=== PATIENT | female | born 1960 | race Caucasian/White ===

== ENCOUNTER 2022-01-28 07:23 | Observation (INO) ==
--- NOTE | 2021-12-23 14:54 | PAT Medication Instructions ---
Medication Instructions Date of Service December 23, 2021 Home Medications aspirin 81 mg tablet,delayed release 81 mg PO HS azelastine 0.05 % eye drops 1 drp ophthalmic (eye) BID PRN baclofen 10 mg tablet 10 mg PO BID cholecalciferol (vitamin D3) 125 mcg (5,000 unit) tablet (Vitamin D3) 125 mcg PO HS ezetimibe 10 mg-simvastatin 20 mg tablet 1 tab PO HS folic acid 1 mg tablet 1 mg PO QAM galcanezumab-gnlm 120 mg/mL subcutaneous pen injector (Emgality Pen) 120 mg subcut Q30D hydroxychloroquine 200 mg tablet (Plaquenil) 200 mg PO BID leflunomide 20 mg tablet 20 mg PO QAM lisinopril 10 mg tablet 10 mg PO QAM magnesium 100 mg tablet 100 mg PO HS pantoprazole 40 mg tablet,delayed release (Protonix) 40 mg PO QAM ranolazine 500 mg tablet,extended release,12 hr 500 mg PO BID sertraline 100 mg tablet 100 mg PO QAM terazosin 5 mg capsule 5 mg PO HS thiamine HCl (vitamin B1) 250 mg tablet (Vitamin B-1) 250 mg PO QAM tocilizumab 162 mg/0.9 mL subcutaneous pen injector (Actemra ACTPen) 162 mg subcut Q7D topiramate 50 mg tablet (Topamax) 50 mg PO BID zoledronic acid 5 mg/100 mL in mannitol 5 %-water intravenous piggybck (Reclast) 1 ea IV Q365D zolpidem 6.25 mg tablet,extended release,multiphase 6.25 mg PO HS ASK your prescriber and surgeon galcanezumab-gnlm 120 mg/mL subcutaneous pen injector (Emgality Pen) 120 mg subcut Q30D hydroxychloroquine 200 mg tablet (Plaquenil) 200 mg PO BID leflunomide 20 mg tablet 20 mg PO QAM tocilizumab 162 mg/0.9 mL subcutaneous pen injector (Actemra ACTPen) 162 mg subcut Q7D zoledronic acid 5 mg/100 mL in mannitol 5 %-water intravenous piggybck (Reclast) 1 ea IV Q365D DO NOT take the morning of surgery baclofen 10 mg tablet 10 mg PO BID folic acid 1 mg tablet 1 mg PO QAM lisinopril 10 mg tablet 10 mg PO QAM thiamine HCl (vitamin B1) 250 mg tablet (Vitamin B-1) 250 mg PO QAM Take morning of surgery With a small sip of water, OTHERWISE NOTHING TO EAT OR DRINK AFTER MIDNIGHT: azelastine 0.05 % eye drops 1 drp ophthalmic (eye) BID PRN(if needed) pantoprazole 40 mg tablet,delayed release (Protonix) 40 mg PO QAM sertraline 100 mg tablet 100 mg PO QAM topiramate 50 mg tablet (Topamax) 50 mg PO BID ranolazine 500 mg tablet,extended release,12 hr 500 mg PO BID Take evening before surgery aspirin 81 mg tablet,delayed release 81 mg PO HS (unless surgeon directed otherwise) azelastine 0.05 % eye drops 1 drp ophthalmic (eye) BID PRN(if needed) baclofen 10 mg tablet 10 mg PO BID cholecalciferol (vitamin D3) 125 mcg (5,000 unit) tablet (Vitamin D3) 125 mcg PO HS ezetimibe 10 mg-simvastatin 20 mg tablet 1 tab PO HS magnesium 100 mg tablet 100 mg PO HS zolpidem 6.25 mg tablet,extended release,multiphase 6.25 mg PO HS topiramate 50 mg tablet (Topamax) 50 mg PO BID terazosin 5 mg capsule 5 mg PO HS ranolazine 500 mg tablet,extended release,12 hr 500 mg PO BID Other Notes If you have any questions please call us at [phone] or [phone] or [phone] or [phone]
--- NOTE | 2021-12-29 08:29 | Anesthesiology Consultation ---
Date of Service December 29, 2021 Assessment & Plan (1) Encounter for pre-operative examination: - will request most recent cardio note and any available echo, stress test or cath report. - Outpatient joint pathway: Per surgeon and patient, plan for outpatient joint program. Upon review of chart- patient is NOT an acceptable candidate for Same Day Joint Program from anesthesia perspective as does not have adequate home support at this time. Pt and surgeon's office made aware. Booking sheet to be changed to overnight observation. - difficult IV stick. - COVID screening: Per assessment on 12/29/2021: Travel screen negative, no known COVID-19 positive contacts or current COVID-19 related symptoms in past 2 weeks. Pt vaccinated. Surgeon arranging preop COVID testing, /2021. Awaiting results. Chart Review Chart Review: Pending: Refer to Additional Notes / Consult section and Patient seen in Pre Admission Testing Teaching & Discussion Pre-Anesthesia Teaching/Discussion Notes: Instructed NPO after midnight before surgery, except medications with 15 cc of water. Medication instructions provided according to the PAT guidelines. History Surgery Operation Date: 01/28/22 10:10 Proposed Procedures p OP: Left Total Knee Arthroplasty - Abundio Recinos DO Height/Weight Height: 5 ft 6 in Weight: 78.4 kg Allergies Allergy/AdvReac Type Severity Reaction Status Date / Time cefuroxime [From Ceftin] Allergy vomiting, Verified 12/17/21 11:49 diarrhea levofloxacin [From Levaquin] Allergy vomiting, Verified 12/17/21 11:49 diarrhea Medications Home Medications Medication Instructions Recorded Confirmed Last Taken aspirin 81 mg tablet,delayed 81 mg PO HS 12/17/21 12/17/21 Unknown release azelastine 0.05 % eye drops 1 drp ophthalmic (eye) BID PRN 12/17/21 12/17/21 Unknown allergies baclofen 10 mg tablet 10 mg PO BID 12/17/21 12/17/21 Unknown cholecalciferol (vitamin D3) 125 125 mcg PO HS 12/17/21 12/17/21 Unknown mcg (5,000 unit) tablet (Vitamin D3) ezetimibe 10 mg-simvastatin 20 mg 1 tab PO HS 12/17/21 12/17/21 Unknown tablet folic acid 1 mg tablet 1 mg PO QAM 12/17/21 12/17/21 Unknown galcanezumab-gnlm 120 mg/mL 120 mg subcut Q30D 12/17/21 12/17/21 Unknown subcutaneous pen injector (Emgality Pen) hydroxychloroquine 200 mg tablet 200 mg PO BID 12/17/21 12/17/21 Unknown (Plaquenil) leflunomide 20 mg tablet 20 mg PO QAM 12/17/21 12/17/21 Unknown lisinopril 10 mg tablet 10 mg PO QPM 12/17/21 12/29/21 Unknown magnesium 100 mg tablet 100 mg PO HS 12/17/21 12/17/21 Unknown pantoprazole 40 mg tablet,delayed 40 mg PO QAM 12/17/21 12/17/21 Unknown release (Protonix) ranolazine 500 mg tablet,extended 500 mg PO BID 12/17/21 12/17/21 Unknown release,12 hr sertraline 100 mg tablet 100 mg PO QAM 12/17/21 12/17/21 Unknown terazosin 5 mg capsule 5 mg PO HS 12/17/21 12/17/21 Unknown thiamine HCl (vitamin B1) 250 mg 250 mg PO QPM 12/17/21 12/29/21 Unknown tablet (Vitamin B-1) tocilizumab 162 mg/0.9 mL 162 mg subcut Q7D 12/17/21 12/17/21 Unknown subcutaneous pen injector (Actemra ACTPen) topiramate 50 mg tablet (Topamax) 50 mg PO BID 12/17/21 12/17/21 Unknown zoledronic acid 5 mg/100 mL in 1 ea IV Q365D 12/17/21 12/17/21 Unknown mannitol 5 %-water intravenous piggybck (Reclast) zolpidem 6.25 mg tablet,extended 6.25 mg PO HS 12/17/21 12/17/21 Unknown release,multiphase Tymlos 80 mcg QPM 12/29/21 12/29/21 Unknown gabapentin 300 mg PO BID 12/29/21 12/29/21 Unknown levocetirizine 5 mg PO QPM 12/29/21 12/29/21 Unknown Past Medical History Medical History (Updated 12/29/21 @ 09:12 by Sharon Dewitt PA-C) Degenerative joint disease Difficult intravenous access "last time IV was placed in my neck" History of blood transfusion 20 ys ago with colon resection Hx of chest pain "told I have small arteries leading to my heart" f/u Dr. Bellamy, [facility] Hx of Raynaud's syndrome Hypertension Osteoporosis Rheumatoid arthritis Sleep apnea "my kids said I need tested because I stop breathing in my sleep" Patient denies h/o stroke, seizures, heart attack, heart failure, DM, or blood clots. Exercise / Class Metabolic Activity II 4-5 Yardwork/Stairs/Walk up hill (ambulating with crutches, denies CP or SOB with ambulation prior to needing crutches; feels slight SOB with stairs with crutches and braces) Past Surgical History Surgical History (Updated 12/29/21 @ 09:12 by Sharon Dewitt PA-C) History of arthroscopic procedure on shoulder RCT Lt. shoulder History of colon resection requiring revision during same hospitalization, > 20 yrs ago Hx of anterior cruciate ligament surgery Lt. Hx of arthroscopic knee surgery Lt and Rt. Hx of breast reduction, elective Hx of colonoscopy Hx of total hysterectomy with removal of both tubes and ovaries Past Anesthesia History No Hx of Anesthesia Complications and No Family Hx of Anesthesia Complications History of PONV No Hx of PONV and No Hx of Motion Sickness Social History Smoking Status: Never smoker Do You Dip or Chew Tobacco: No Hx Alcohol Use: Yes Alcohol type: beer and wine alcohol intake frequency: holidays/special occasions only Hx Substance Use: No substance use type: does not use Review of Systems Patient denies chest pain, shortness of breath, dyspnea on exertion, fever, chills, cough, wheezing, or palpitations. Physical Exam Vital Signs Vitals BP 12/87 P 64 TEMP 97.7 SP02 99% on RA RESP 17 Physical Limited cervical extension range of motion without pain TMD 3.5 finger breadths Mallampati Score 3, small oral opening Dentition: intact, left upper side and lower right side caps; denies chipped or loose teeth, implants or bridges Lungs: normal respiratory effort. Clear throughout to auscultation, no adventitious breath sounds Cardiac: regular rate and rhythm, no murmurs noted Carotid arteries: negative bruit bilat Lab Results Anesthesia Preop Results Results Anesthesia Widget: WBC 4.31 K/ul (4.8-10.8) L 12/29/21 Hgb 13.4 g/dl (12.0-16.0) 12/29/21 Hct 41.0 % (34.1-44.9) 12/29/21 Plt 196 K/uL (130-400) 12/29/21 Na 140 mmol/L (136-145) 12/29/21 K 4.4 mmol/L (3.5-5.1) 12/29/21 Cl 110 mmol/L (98-107) H 12/29/21 CO2 24 mmol/L (21-32) 12/29/21 BUN 15 mg/dl (6-23) 12/29/21 Creat 0.76 mg/dl (0.6-1.2) 12/29/21 Glucose Level 92 mg/dl (70-99(Fasting)) 12/29/21 PT 11.4 Seconds (9.0-12.0) 12/29/21 PTT 22.5 Seconds (21.0-31.0) 12/29/21 INR 1.1 (0.9-1.1) 12/29/21 HA1c 5.2 % (4.5-5.6) 12/29/21 Urine Color Yellow 12/29/21 Urine Appearance Clear (Clear) 12/29/21 Urine pH 6.0 (4.5-7.5) 12/29/21 Urine Specific Burton 1.008 (1.000-1.030) 12/29/21 Urine Protein Negative (Negative) 12/29/21 Urine Glucose (UA) Negative (Negative) 12/29/21 Urine Ketones Negative (Negative) 12/29/21 Urine Blood Negative (Negative) 12/29/21 Urine Nitrite Negative (Negative) 12/29/21 Urine Bilirubin Negative (Negative) 12/29/21 Urine Urobilinogen Negative (Negative) 12/29/21 Urine Leukocyte Esterase Trace (Negative) H 12/29/21 Urine WBC (Auto) 1-5 /hpf (0-5) 12/29/21 Urine RBC (Auto) 0-4 /hpf (0-4) 12/29/21 Urine Hyaline Casts (Auto) 1-5 /lpf (0-5) 12/29/21 Urine Epithelial Cells (Auto) 10-20 /lpf (0-5) H 12/29/21 Urine Bacteria (Auto) Negative (Negative) 12/29/21 Blood Type A Positive 12/29/21 Antibody Screen NEGATIVE 12/29/21 Testing Electrocardiogram Date: 12/29/21 NSR, rate 64 bpm Chest X-Ray Date: 12/29/21 1. No acute process within the chest. 2. Minimal anterior wedging at T3. This is technically age indeterminate but likely represents a chronic compression deformity. Cervical Spine Date: 12/29/21 1. No evidence for cervical spine instability during flexion or extension. 2. Severe multilevel facet arthrosis.
--- NOTE | 2021-12-30 07:43 | History & Physical Report ---
Date of Service December 30, 2021 date of surgery: 01/28/22 Procedure: Left Total Knee Arthroplasty Surgeon: Abundio Recinos Assessment & Plan (1) Arthritis of knee, left: Plan: Patient presents for preop evaluation prior to left total knee replacement. She has failed conservative measures including cortisone injection, viscosupplementation. We will plan on discharge home with home health physical therapy, overnight stay. Her mother will come check on her after discharge. We will plan on in-home physical therapy, aspirin 81 mg twice a day for DVT prophylaxis. We will submit to insurance for authorization for Iovera injection prior to her surgery, if there is approval proceed with Iovera on 01/15. will need medical clearance from Dr Blood The risks and benefits have been discussed including, but not limited to, risk of infection, nerve injury, stiffness, loss of motion, failure to improve, etc. Reasonable outcomes and options of treatment were discussed. An explanation of appropriate alternatives to the procedure that may be advantageous were disc ussed and their risks and benefits, as well as the risks and benefits of not proceeding with treatment. I offered to answer any additional inquiries concerning the treatment involved. All the patient's questions were answered. The patient is agreeable, understanding of the treatment plan and alternatives, and wishes to proceed with the treatment plan. History of Present Illness Chief Complaint: left knee pain Primary Care Provider: NO PCP Francheska is a pleasant 61-year-old female who presents for preop evaluation prior to left total knee replacement. Francheska has been having pain in this knee for many years now which is gradually worsened. Her most recent MRI shows grade 3 and 4 changes tricompartmentally as well as moderate joint effusion and stress reaction of her medial tibial plateau. She has tried previous cortisone injections as well as viscosupplementation, she had knee arthroscopy performed as well without any relief. At this point time she has failed conservative measures and after discussing further care would like to proceed with a left total knee replacement Allergies Allergy/AdvReac Type Severity Reaction Status Date / Time cefuroxime [From Ceftin] Allergy vomiting, Verified 12/17/21 11:49 diarrhea levofloxacin [From Levaquin] Allergy vomiting, Verified 12/17/21 11:49 diarrhea Home Medications Medication Instructions Recorded Confirmed Type aspirin 81 mg tablet,delayed 81 mg PO HS 12/17/21 12/17/21 History release azelastine 0.05 % eye drops 1 drp ophthalmic (eye) BID PRN 12/17/21 12/17/21 History allergies baclofen 10 mg tablet 10 mg PO BID 12/17/21 12/17/21 History cholecalciferol (vitamin D3) 125 125 mcg PO HS 12/17/21 12/17/21 History mcg (5,000 unit) tablet (Vitamin D3) ezetimibe 10 mg-simvastatin 20 mg 1 tab PO HS 12/17/21 12/17/21 History tablet folic acid 1 mg tablet 1 mg PO QAM 12/17/21 12/17/21 History galcanezumab-gnlm 120 mg/mL 120 mg subcut Q30D 12/17/21 12/17/21 History subcutaneous pen injector (Emgality Pen) hydroxychloroquine 200 mg tablet 200 mg PO BID 12/17/21 12/17/21 History (Plaquenil) leflunomide 20 mg tablet 20 mg PO QAM 12/17/21 12/17/21 History lisinopril 10 mg tablet 10 mg PO QPM 12/17/21 12/29/21 History magnesium 100 mg tablet 100 mg PO HS 12/17/21 12/17/21 History pantoprazole 40 mg tablet,delayed 40 mg PO QAM 12/17/21 12/17/21 History release (Protonix) ranolazine 500 mg tablet,extended 500 mg PO BID 12/17/21 12/17/21 History release,12 hr sertraline 100 mg tablet 100 mg PO QAM 12/17/21 12/17/21 History terazosin 5 mg capsule 5 mg PO HS 12/17/21 12/17/21 History thiamine HCl (vitamin B1) 250 mg 250 mg PO QPM 12/17/21 12/29/21 History tablet (Vitamin B-1) tocilizumab 162 mg/0.9 mL 162 mg subcut Q7D 12/17/21 12/17/21 History subcutaneous pen injector (Actemra ACTPen) topiramate 50 mg tablet (Topamax) 50 mg PO BID 12/17/21 12/17/21 History zoledronic acid 5 mg/100 mL in 1 ea IV Q365D 12/17/21 12/17/21 History mannitol 5 %-water intravenous piggybck (Reclast) zolpidem 6.25 mg tablet,extended 6.25 mg PO HS 12/17/21 12/17/21 History release,multiphase Tymlos 80 mcg QPM 12/29/21 12/29/21 History gabapentin 300 mg PO BID 12/29/21 12/29/21 History levocetirizine 5 mg PO QPM 12/29/21 12/29/21 History Past Med/Surg History Medical History Degenerative joint disease Difficult intravenous access "last time IV was placed in my neck" History of blood transfusion 20 ys ago with colon resection Hx of chest pain "told I have small arteries leading to my heart" f/u Dr. Bellamy, [facility] Hx of Raynaud's syndrome Hypertension Osteoporosis Rheumatoid arthritis Sleep apnea "my kids said I need tested because I stop breathing in my sleep" Surgical History History of arthroscopic procedure on shoulder RCT Lt. shoulder History of colon resection requiring revision during same hospitalization, > 20 yrs ago Hx of anterior cruciate ligament surgery Lt. Hx of arthroscopic knee surgery Lt and Rt. Hx of breast reduction, elective Hx of colonoscopy Hx of total hysterectomy with removal of both tubes and ovaries Social History Smoking Status: Never smoker Second Hand Exposure: Yes ("as a child"); Hx Alcohol Use: Yes Alcohol type: beer and wine Hx Substance Use: No Preferred Language: Bur[place]ian Communication Ability: Effective Special Education Superintendent Required: No Beliefs That Will Affect Care: None Current Living Situation: Spouse Feels Safe at Home: Yes Assistive Devices: Glasses Review of Systems Review of Systems: All systems reviewed & are unremarkable except as noted in HPI & below Constitutional: no fever, no chills and no sweats Respiratory: no cough and no dyspnea Cardiovascular: no chest pain, no dyspnea and no orthopnea Gastrointestinal: no abdominal pain, no nausea and no vomiting Musculoskeletal: as per Subjective / HPI Physical Exam Physical Exam: HT: 5ft 6in WT: 78.4kg Constitutional: WD/WN, vitals as above no acute distress Respiratory: normal respiratory effort, lungs clear to auscultation no respiratory distress, no labored breathing and does not use accessory muscles Cardiovascular: RRR, no murmur, no edema Gastrointestinal (Abdomen): normal bowel sounds, soft, nontender, no hepatosplenomegaly Musculoskeletal: Knee: + knee abnormal to inspection (LEFT KNEE), + effusion (+1 effusion), + surgical incision (well healed portals), + limited ROM of knee (ROM 0/3/110), + knee ROM with crepitation, + joint line tenderness (medial joint line) and + José Miguel's sign positive; no deformity, no skin erythema, no ecchymosis, no valgus laxity, no varus laxity, anterior drawer test negative, Asher's sign negative and pivot shift test negative Results & Data Results & Data ([facility]) Diagnostic Findings Prior x-rays and MRI reviewed, show grade 3 and grade 4 changes tricompartmentally, status post ACL reconstruction, moderate joint effusion. No acute bony pathology
[~2022-01-28 07:23] MED LIST: ACETAMINOPHEN 500 MG TAB PO SCH; BUPIVACAINE 0.5 % 5 MG/1 ML PF 10ML VIAL ONE; CeleBREX 200 MG CAP PO SCH; FAMOTIDINE 20 MG TAB PO SCH; GABAPENTIN 600 MG DOSE PO SCH; LR 500ML BOLUS, THEN 15ML/HR IV SCH; METOCLOPRAMIDE HCL 10 MG TABLET PO SCH; ROPIVACAINE 0.5% 5 MG/ML 30 ML VIAL ONE; ROPIVACAINE 0.5% HCL/PF 150 MG, BUPIVACAINE 0.75% MPF 20 ML, EPINEPHrine 30MG/30ML (OR ... INSTIL SCH; TRANEXAMIC ACID 1,000 MG **IV Intra-op IV SCH; TRANEXAMIC ACID 1,000 MG **IV Pre-op IV SCH; VANCOMYCIN HCL 1,250 MG in SODIUM CHLORIDE 0.9% 250 ML IV SCH; dexAMETHasone 4 MG TAB PO SCH
--- NOTE | 2022-01-28 08:31 | History & Physical Bridge Note ---
Date of Service January 28, 2022 History & Physical Bridge Note I have examined the patient, reviewed the History & Physical and in the interval since the performance of the History & Physical I have noted the following changes of clinical significance: no changes noted
[2022-01-28] MEDS ORDERED: MIDAZOLAM HCL 1 MG/ML 2ML VIAL ONE (09:12)
[2022-01-28] MEDS ORDERED: fentaNYL citrate 100 MCG/2 ML VIAL ONE (09:12)
[2022-01-28] MEDS ORDERED: LIDOCAINE 2% 2 ML VIAL/AMP(20MG/ML) INFIL ONE (09:12)
[2022-01-28] MEDS ORDERED: PROPOFOL IV EMULSION 10 MG/ML 20 ML VIAL IV ONE (09:12)
[2022-01-28] MEDS ORDERED: fentaNYL citrate 100 MCG/2 ML VIAL IV PRN (09:37)
[2022-01-28] MEDS ORDERED: ePHEDrine sulfate 50 MG/ML AMP IV PRN (09:37)
[2022-01-28] MEDS ORDERED: ATROPINE SULFATE 0.1 MG/ML 10ML SYR IV PRN (09:37)
[2022-01-28] MEDS ORDERED: ONDANSETRON INJ 2 MG/ML 2 ML VIAL IV PRN ×2 (09:37→13:36)
[2022-01-28] MEDS ORDERED: ORTHO JOINT ANESTHETIC ONE (10:18)
[2022-01-28] MEDS ORDERED: KETAMINE 50 MG/5 ML SYRINGE ONE (11:05)
--- NOTE | 2022-01-28 11:58 | Operative Report ---
Post Operative Report Pre & Post Diagnosis Operation Date: 01/28/22 10:00 Pre-Op Diagnosis: Left knee osteoarthritis Post-Op Diagnosis: Left knee osteoarthritis I identified the patient and participated in the time-out.: Yes Procedure Operation Date: 01/28/22 10:00 Actual Procedures p Left Total Knee Arthroplasty, Cemented(Left) utilizing Burton & NephParchment journey 2 patient matched total knee arthroplasty size femur 4 tibia to polyeleven patella 29 mayra- Abundio Recinos DO Surgeon Abundio Recinos DO Crime Lab Analyst Aydin PATEL Estimated Blood Loss 5 Findings Consistent with Post-Op Diagnosis Patient presents with severe end-stage tricompartmental DJD previously had a previous ACL tear reconstruction with marginal osteophyte subchondral cystic changes eburnated [id number] moderate to large effusion Specimens Bone and cartilage Drains Medium bore Hemovac Anesthesia Type MAC Spinal Regional Complications none Disposition Accompanied Patient To Recovery: No Disposition: Recovery Room Indications Patient presents severe end-stage DJD having failed all attempts at conservative management clinic physical therapy anti-inflammatories relative rest activity modification corticosteroid injections the above intraoperative findings were noted Description of Procedure After proper prepping and draping of the left lower extremity anterior midline incision was made over the region of the extensor extensor mechanism after meticulous hemostasis was obtained and maintained in subcutaneous tissues a medial parapatellar incision was made The patella was subluxed lateralward the medial lateral gutter were cleaned from any hypertrophic synovitis and scar tiss ue of the distal femoral block was placed and the distal femoral osteotomy cut was made subsequently the chamfers anterior and posterior osteotomy cuts were made utilizing the 4-in-1 block the tibia was subsequently subluxed anteriorward medial and ateral meniscal remnants were excised in their entirety remnants of the anterior and posterior cruciate ligaments were excised in their entirety excellent exposure of the proximal tibia was obtained the tibial osteotomy guide was placed on the proximal tibial osteotomy cut was made once again the knee was irrigated with copious amounts of sterile saline solution the patella was subsequently everted lateralward thickened scar tissue around the patella was removed the patella was subsequently cut utilizing a freehand technique and was drilled prepared for final preparation and placement of patella socially flexion-extension gaps were checked and the equal and symmetric trials were placed to the appropriate femoral and tibial trials with poly-spacer being placed for equal flexion and extension gaps and full range of motion including extension to 0 and flexion to 140 the trial components after having been taken to recovery range of motion was subsequently removed meticulous hemostasis was obtained and maintained subsequently a knee block injection of joint cocktail including ropivacaine 0.5% 150 mg. Bupivacaine 0.5% epinephrine 1-200,030 mL's toradol 30 mg dexamethasone 4 mg ketamine 10 mg clonidine 100 micrograms normal saline solution 30 mg was infiltrated into the soft tissues of the posterior knee medial lateral gutters and periosteal synovium special attention was paid to protect neurovascular structures at all times subsequently trial components having been removed the knee was irrigated with sterile saline solution. d ebris was removed the proximal tibia was subsequently prepared and was made ready for the placement of the tibial component tibial component was also cemented and tamped into position the femoral component was subsequently placed and cemented in the position the patellar component was subsequently cemented in position because hemostasis once again obtained and maintained wound having been thoroughly irrigated with debridement and debridement lavage was performed as well as a medial parapatellar incision closed with #1 Vicryl in interrupted fashion subcutaneous was closed with #2 Vicryl skin was closed with skin clips. PA-C was necessary for prepping and drapping as well as wound closure of deep fascia Sub cutaneous tissue and skin and was necessary for the case. A sterile compressive dressing was placed patient was taken to recovery in stable condition of report dictated by Jorje I attest to the content of the Intraoperative Record and any orders documented therein. Any exceptions are noted below.Due to the complex nature of the procedure, the entire surgery was performed with the operational assistance of Aydin PATEL. The front desk assistant, under direct supervision, was involved in the actual performance of all aspects of the surgical procedure including hemostasis, tissue retraction and incision, instrument management, patient positioning, and wound closure. I attest to the content of the Intraoperative Record and any orders documented therein. Any exceptions are noted below.
[2022-01-28] MEDS ORDERED: ONDANSETRON INJ 2 MG/ML 2 ML VIAL ONE (12:04)
--- NOTE | 2022-01-28 13:15 | Anesthesiology Progress Note ---
Date of Service January 28, 2022 Anesthesia Post Procedure Vital Signs Vital Signs: Temp Pulse Pulse Resp BP BP Pulse Ox 01/28/22 13:10 74 18 132/82 94 01/28/22 13:00 67 20 120/67 96 01/28/22 12:50 73 16 127/66 96 01/28/22 12:40 36.4 C L 83 22 123/66 95 01/28/22 08:20 36.6 C 66 20 124/66 97 O2 Del Method O2 Flow Rate 01/28/22 13:10 Room Air 01/28/22 13:00 Oxymask 6 01/28/22 12:50 Oxymask 6 01/28/22 12:40 Oxymask 6 01/28/22 08:20 Room Air Pain Intensity Left Leg: Pain Intensity: 8 Transfer of Care Handoff Completed per policy Notes Mental Status: alert / awake / arousable Patient Amnestic to Procedure: Yes Nausea / Vomiting: adequately controlled Pain: adequately controlled Airway Patency, RR, SpO2: stable & adequate BP & HR: stable & adequate Hydration State: stable & adequate Neuraxial Anesthesia: was administered and sensory block is resolving Anesthetic Complications: no major complications apparent and Pt Satisfied with anesthetic care
--- NOTE | 2022-01-28 13:21 | XRay Report ---
LEFT KNEE 2 VIEWS History: Left total knee arthroplasty. Degenerative arthritis. Postop. FINDINGS: The patient is status post a left total knee arthroplasty. The hardware is intact. No fract ure or dislocation. Surgical drains are in place. IMPRESSION: Left total knee arthroplasty. No evidence for hardware complication. ACT 112: Negative or not required by law. Electronically signed by: Michael Gauthier M.D. 01/28/2022 1:20 PM
[2022-01-28] MEDS ORDERED: MAGNESIUM HYDROXIDE SUSP 30 ML UDC PO PRN (13:36)
[2022-01-28] MEDS ORDERED: NALOXONE HCL 0.4 MG/1 ML VIAL/CARP IV PRN (13:36)
[2022-01-28] MEDS ORDERED: bisacodyL 10 MG SUPP PR PRN (13:36)
[2022-01-28] MEDS ORDERED: ZOLEDRONIC ACID 5 MG/100 ML VIAL IV SCH (13:36)
[2022-01-28] MEDS: SODIUM CHLORIDE 0.9% 1000ML 1,000 ML IV SCH ×2 (14:54→23:49)
[2022-01-28] MEDS: ACETAMINOPHEN 500 MG TAB PO SCH ×2 (15:46→22:14)
[2022-01-28] MEDS: KETOROLAC TROMETHAMINE 15 MG/ML VIAL IV SCH ×2 (15:48→22:14)
--- NOTE | 2022-01-28 16:01 | Hospitalist Consultation ---
Date of Consultation January 28, 2022 Assessment & Plan (1) Hypertension: Francheska is a 61-year-old female with a past medical history of asthma, iatrogenic pneumothorax, anxiety, hypertension, GERD, allergies, and rheumatoid arthritis who presented for scheduled left total knee. We are consulted for postoperative medication management History of knee pain, s/p left total knee arthroplasty Stable blood pressure and heart rate postoperatively, O2 sat normal on room air Doing well on postop evaluation, neurovascularly intact DVT prophylaxis per primary team. Patient was initially recommended for aspirin twice daily, per her PCP due to her GERD issues would consider Lovenox as an alternative. May increase Protonix to twice daily. Adequate pain control at time of bedside assessment CBC/BMP daily Chronic migraine Continue Emgality Rheumatoid arthritis Prior to admission is on hydroxychloroquine/leflunomide/tocilizumab Above meds were held 1 week in advance of surgery, and have been recommended by her manager category to be held until wound is healed. She will continue outpatient follow-up for these. Continue to hold at this time Avoid glucocorticoids postoperatively Continue DMARDs Osteoporosis -Continue home tymlos, patient has brought her own med Depression/anxiety Continue sertraline Microvascular angina, Continue Ranexa 500 mg p.o. twice daily Statin as noted Continue aspirin daily Follows with [facility], no acute decompensation. Continue outpatient follow-up TTE 2020 with normal wall motion and EF 60%. Cardiac catheterization 08/2019; diagnosed with microvascular angina and no stents placed Continue lipid agents Insomnia Continue home Ambien 6.25 mg CR as needed Hypertension Well-controlled on lisinopril 10 mg daily. May resume tomorrow if creatinine remains stable Hyperlipidemia Continue as ezetimbresimvastatin 10/20 mg daily GERD Continue Protonix, increase to twice daily while on increased DVT prophylaxis then decrease and taper as able given history of osteoporosis (2) Hx of chest pain: (3) Osteoporosis: (4) Rheumatoid arthritis: (5) Sleep apnea: (6) Migraine: History of Present Illness Attending Physician: Abundio Recinos, DO History of Present Illness Francheska is a 61-year-old female with a past medical history of asthma, iatrogenic pneumothorax, anxiety, hypertension, GERD, allergies no We are consulted for postoperative medication management Pt reports a hx of RA well controlled on DMARDS. Held 1 week in advance of surgery. Per preop should be held until wound healed. Does have a chronic history of GERD requiring ongoing PPI therapy. She has been switched to Protonix daily for this as an outpatient. No active bleeding. No syncope/presyncope/lightheadedness/dizziness. She has a history of chronic microvascular cardiac disease with chronic angina worsened with activity, this is doing well with Ranexa and does come up when she does vigorous activity or carries laundry up the stairs but she has had a cardiac cath and does not have any large vessel disease amenable to intervention. She is not having any chest pain currently, and has had no increased chest pain or shortness of breath recently. Denies fever, chills, sweats, lightheadedness, dizziness. Does take time [place] for osteoporosis, has her own meds with her. No nausea/vomiting/dizziness postop. No palpitations. CBC in the morning, preop hemoglobin 13.4. No preop electrolyte derangements, creatinine 0.76. Repeat in morning. COVID-negative. Preop EKG NSR, QTC 449 Medical History: Reviewed Medications: Reviewed Surgical History: Reviewed Allergies: Reviewed Social History: Reviewed Code Status: Full code Allergies Allergy/AdvReac Type Severity Reaction Status Date / Time cefuroxime [From Ceftin] Allergy Intermediate vomiting, Verified 01/28/22 07:56 diarrhea levofloxacin [From Levaquin] Allergy Intermediate vomiting, Verified 01/28/22 07:56 diarrhea Home Medications Medication Instructions Recorded Confirmed Type aspirin 81 mg tablet,delayed 81 mg PO HS 12/17/21 01/28/22 History release azelastine 0.05 % eye drops 1 drp ophthalmic (eye) BID PRN 12/17/21 01/28/22 History allergies baclofen 10 mg tablet 10 mg PO BID 12/17/21 01/28/22 History cholecalciferol (vitamin D3) 125 125 mcg PO HS 12/17/21 01/28/22 History mcg (5,000 unit) tablet (Vitamin D3) ezetimibe 10 mg-simvastatin 20 mg 1 tab PO HS 12/17/21 01/28/22 History tablet (Vytorin) folic acid 1 mg tablet 1 mg PO QAM 12/17/21 01/28/22 History galcanezumab-gnlm 120 mg/mL 120 mg subcut Q30D 12/17/21 01/28/22 History subcutaneous pen injector (Emgality Pen) hydroxychloroquine 200 mg tablet 200 mg PO BID 12/17/21 01/28/22 History (Plaquenil) leflunomide 20 mg tablet (Arava) 20 mg PO QAM 12/17/21 01/28/22 History lisinopril 10 mg tablet (Zestril) 10 mg PO QPM 12/17/21 01/28/22 History pantoprazole 40 mg tablet,delayed 40 mg PO QAM 12/17/21 01/28/22 History release (Protonix) ranolazine 500 mg tablet,extended 500 mg PO BID 12/17/21 01/28/22 History release,12 hr (Ranexa) sertraline 100 mg tablet 100 mg PO QAM 12/17/21 01/28/22 History terazosin 5 mg capsule 5 mg PO HS 12/17/21 01/28/22 History thiamine HCl (vitamin B1) 250 mg 250 mg PO QPM 12/17/21 01/28/22 History tablet (Vitamin B-1) tocilizumab 162 mg/0.9 mL 162 mg subcut Q7D 12/17/21 01/28/22 History subcutaneous pen injector (Actemra ACTPen) topiramate 50 mg tablet (Topamax) 50 mg PO BID 12/17/21 01/28/22 History zoledronic acid 5 mg/100 mL in 1 ea IV Q365D 12/17/21 01/28/22 History mannitol 5 %-water intravenous piggybck (Reclast) zolpidem 6.25 mg tablet,extended 6.25 mg PO HS 12/17/21 01/28/22 History release,multiphase (Ambien CR) Tymlos 80 mcg SC QPM 12/29/21 01/28/22 History gabapentin 300 mg PO BID 12/29/21 01/28/22 History levocetirizine 5 mg PO QPM 12/29/21 01/28/22 History acetaminophen 500 mg tablet 1,000 mg PO Q8 14 days #84 tabs 01/28/22 Rx (Tylenol Extra Strength) aspirin 81 mg tablet,delayed 81 mg PO BID 30 days #60 tabs 01/28/22 Rx release polyethylene glycol 3350 17 gram 17 g PO DAILY PRN constipation #5 01/28/22 Rx oral powder packet (Miralax) ea Patient History Medical History (Updated 01/28/22 @ 16:41 by Franck Schultz MD) Degenerative joint disease Difficult intravenous access "last time IV was placed in my neck" History of blood transfusion 20 ys ago with colon resection Hx of chest pain "told I have small arteries leading to my heart" f/u Dr. Bellamy, [facility] Hx of Raynaud's syndrome Hypertension Osteoporosis Rheumatoid arthritis Sleep apnea "my kids said I need tested because I stop breathing in my sleep" Surgical History History of arthroscopic procedure on shoulder RCT Lt. shoulder History of colon resection requiring revision during same hospitalization, > 20 yrs ago Hx of anterior cruciate ligament surgery Lt. Hx of arthroscopic knee surgery Lt and Rt. Hx of breast reduction, elective Hx of colonoscopy Hx of total hysterectomy with removal of both tubes and ovaries Social History Smoking Status: Never smoker Second Hand Exposure: Yes ("as a child"); Do You Dip or Chew Tobacco: No; Tobacco Cessation Education Requested by Patient: No Hx Alcohol Use: Yes Alcohol type: beer and wine Hx Substance Use: No Preferred Language: Vietnamese Communication Ability: Effective [employer] Required: No Beliefs That Will Affect Care: None Current Living Situation: Spouse Other Information That Helps Us Care for You: No Feels Safe at Home: Yes Safety Concerns: Feels Safe At This Time Assistive Devices: Glasses Review of Systems Review of Systems: All systems reviewed & are unremarkable except as noted in Subjective Physical Exam Physical Exam: General: A&Ox3. NAD. Cooperative. HEENT: Atraumatic, normocephalic. Vision/hearing grossly intact Pulm: CTAB A&P. -wheezes, -rales, -rhonchi. Symmetrical chest rise. No increase in work of breathing. No respiratory distress. Cardiac: RRR, -mrg. Radial pulses intact and symmetrical. Abdominal: Nontender, nondistended, soft. BS present. Extremities: Left lower extremity with postop knee dressing and ice pack intact, sensation of soft touch in toes bilaterally, able to wiggle toes bilaterally. Cap refill in hallux intact bilaterally Results & Data Results & Data ([facility]) Vital Signs (Past 12 Hours) Vital Signs Temp Pulse Pulse Resp BP BP Pulse Ox 01/28/22 14:44 36.7 C 67 18 128/66 96 01/28/22 14:03 36.4 C L 68 18 138/82 94 01/28/22 13:34 36.6 C 64 18 124/75 92 01/28/22 13:20 36.4 C L 64 18 136/74 94 01/28/22 13:10 74 18 132/82 94 01/28/22 13:00 67 20 120/67 96 01/28/22 12:50 73 16 127/66 96 01/28/22 12:40 36.4 C L 83 22 123/66 95 01/28/22 08:20 36.6 C 66 20 124/66 97 O2 Del Method O2 Flow Rate 01/28/22 14:44 Room Air 01/28/22 14:03 Room Air 01/28/22 13:34 Room Air 01/28/22 13:20 Room Air 01/28/22 13:10 Room Air 01/28/22 13:00 Oxymask 6 01/28/22 12:50 Oxymask 6 01/28/22 12:40 Oxymask 6 01/28/22 08:20 Room Air PG Care Time/CCT Total # of Minutes Spent Total Time Spent with Patient: Total time spent is greater than 50% in coordination of care (as documented) at patient's floor/unit and/or counseling patient: Coding Level of Care Code 70392 Inpt Consult Level 4 Diagnoses Hypertension I10 Hx of chest pain Z87.898 Osteoporosis M81.0 Rheumatoid arthritis M06.9 Sleep apnea G47.30 Migraine G43.909
[2022-01-28] MEDS: CLINDAMYCIN 600 MG in DEXTROSE 5% 50 ML IV SCH (18:07)
[2022-01-28] MEDS: TOPIRAMATE 50 MG TAB PO SCH (20:05)
[2022-01-28] MEDS: THIAMINE HCL 100 MG TAB PO SCH (20:06)
[2022-01-28] MEDS: RANOLAZINE 500 MG ER TAB PO SCH (20:07)
[2022-01-28] MEDS: SENNA 8.6 MG TAB PO SCH (20:07)
[2022-01-28] MEDS: lisinopril 10 MG TAB PO SCH (20:08)
[2022-01-28] MEDS: PANTOprazole 40 MG TAB PO SCH (20:09)
[2022-01-28] MEDS: EZETIMIBE/SIMVASTATIN 10/20 TAB PO SCH (20:11)
[2022-01-28] MEDS: CHOLECALCIFEROL 5,000 UNITS 125 MCG TAB PO SCH (20:12)
[2022-01-28] MEDS: DOCUSATE SODIUM 100 MG CAP PO SCH (20:12)
[2022-01-28] MEDS: BACLOFEN 10 MG TAB PO SCH (20:21)
[2022-01-28] MEDS: TERAZOSIN HCL 5 MG CAP PO SCH (20:21)
[2022-01-28] MEDS: ZOLPIDEM TARTRATE 5 MG TAB PO SCH (20:21)
[2022-01-28] MEDS ORDERED: NON-FORMULARY MEDICATION (Levocetirizine 5 MG) PO SCH (21:00)
[2022-01-28] MEDS ORDERED: ASPIRIN 81 MG ECTAB PO SCH (21:00)
[2022-01-28] MEDS ORDERED: GABAPENTIN 300 MG CAP PO SCH (21:00)
[2022-01-29] MEDS: CLINDAMYCIN 600 MG in DEXTROSE 5% 50 ML IV SCH (02:23)
[2022-01-29] MEDS: KETOROLAC TROMETHAMINE 15 MG/ML VIAL IV SCH ×2 (05:03→10:18)
[2022-01-29] MEDS: ACETAMINOPHEN 500 MG TAB PO SCH ×4 (06:18→21:02)
[2022-01-29 07:54] LABS: Hematocrit (blood only) 32.1 % (34.1-44.9); Hemoglobin 10.7 g/dl (12.0-16.0); Mean Corpuscular Hemoglobin 31.7 pg (25.0-34.0); Mean Corpuscular Hgb Conc 33.3 g/dL (32.0-36.0); Platelet Count 162 K/uL (130-400); RDW Coefficient of Variation 12.4 % (11.5-14.5); RDW Standard Deviation 43.6 fL (36.4-46.3); Red Blood Count 3.38 M/uL (3.93-5.22); White Blood Count 12.01 K/ul (4.8-10.8)
[2022-01-29 08:16] LABS: BUN Creatinine Ratio 26.1 (10-20); Calcium 8.3 mg/dl (8.5-10.1); Creatinine Clr Calc Pharmacy 92.4 ml/min; Est GFR (African American) 110.4 ml/min; Est GFR (Non-African American) 95.3 ml/min; Potassium 3.7 mmol/L (3.5-5.1)
[2022-01-29] MEDS: RANOLAZINE 500 MG ER TAB PO SCH ×2 (08:39→20:52)
[2022-01-29] MEDS: GABAPENTIN 300 MG CAP PO SCH ×2 (08:39→20:52)
[2022-01-29] MEDS: DOCUSATE SODIUM 100 MG CAP PO SCH ×2 (08:39→20:51)
[2022-01-29] MEDS: TOPIRAMATE 50 MG TAB PO SCH ×2 (08:42→20:51)
[2022-01-29] MEDS: FOLIC ACID 1 MG TAB PO SCH (08:42)
[2022-01-29] MEDS: BACLOFEN 10 MG TAB PO SCH ×2 (08:43→20:51)
[2022-01-29] MEDS: MULTIVITAMIN TAB PO SCH (08:43)
[2022-01-29] MEDS: SERTRALINE HCL 100 MG TABLET PO SCH (08:43)
[2022-01-29] MEDS: PANTOprazole 40 MG TAB PO SCH ×2 (08:44→20:51)
[2022-01-29] MEDS ORDERED: TYMLOS SQ SCH (09:00)
[2022-01-29] MEDS ORDERED: PANTOprazole 40 MG TAB PO SCH (09:00)
--- NOTE | 2022-01-29 09:26 | Orthopedic Progress Note ---
Date of Service January 29, 2022 Assessment & Plan (1) Arthritis of knee, left: Plan: Postop day 1 status post left total knee arthroplasty PT/OT protocols. Weightbearing as tolerated. Patient may need to use immobilizer for leg weakness secondary to nerve block and intraoperative injection. Her numbness is likely secondary from intraoperative injection and residual nerve blockade. Patient states that her foot was completely last night however she has noticed some increased range of motion this morning. Continues with decreased sensation. We will watch for now. DVT prophylaxis-Lovenox daily, SCDs, JOSE hose Pain management as written. DC planning-patient is planning for home health services upon discharge. Admission and Anticipated Discharge Date Admission Date: January 28, 2022 Subjective Postop day 1 Patient is sitting up at the bedside eating her breakfast. She complains that she does have residual numbness in her leg and is having difficulty moving the leg. She states that she has weak dorsiflexion of the left foot. Pain is controlled. Denies shortness of breath, chest pain, lightheadedness. Physical Exam Physical Exam: Dressings are clean, dry, and intact. Calves are soft nontender. She does have some residual decree sensation down the lower extremity to the dorsum of the foot. She has good plantar flexion and has weak dorsiflexion of the foot. She is able to dorsiflex the great toe but again dorsiflexion of the actual foot itself is weak. She had 250 mL from her Hemovac for the previous shift Results & Data ([facility]) Vital Signs (Past 12 Hours) Vital Signs Temp Pulse Resp BP Pulse Ox O2 Del Method 01/29/22 05:51 36.7 C 69 14 125/73 95 Room Air 01/29/22 03:48 36.7 C 51 L 16 127/73 95 Room Air 01/28/22 22:48 37.3 C 56 L 14 125/74 96 Room Air Laboratory Results Laboratory Results WBC 12.01 K/ul (4.8-10.8) H 01/29/22 07:39 RBC 3.38 M/uL (3.93-5.22) L 01/29/22 07:39 Hgb 10.7 g/dl (12.0-16.0) L 01/29/22 07:39 Hct 32.1 % (34.1-44.9) L 01/29/22 07:39 MCV 95.0 fL (80.0-100.0) 01/29/22 07:39 MCH 31.7 pg (25.0-34.0) 01/29/22 07:39 MCHC 33.3 g/dL (32.0-36.0) 01/29/22 07:39 RDW Std Deviation 43.6 fL (36.4-46.3) 01/29/22 07:39 RDW Coeff of Cintia 12.4 % (11.5-14.5) 01/29/22 07:39 Plt Count 162 K/uL (130-400) 01/29/22 07:39 MPV 9.0 fL (9.4-12.3) L 01/29/22 07:39 Sodium 139 mmol/L (136-145) 01/29/22 07:39 Potassium 3.7 mmol/L (3.5-5.1) 01/29/22 07:39 Chloride 111 mmol/L (98-107) H 01/29/22 07:39 Carbon Dioxide 21 mmol/L (21-32) 01/29/22 07:39 Anion Gap 7 (3-11) 01/29/22 07:39 BUN 18 mg/dl (6-23) 01/29/22 07:39 Creatinine 0.69 mg/dl (0.6-1.2) 01/29/22 07:39 Est Cr Clr Drug Dosing 92.4 ml/min 01/29/22 07:39 Est GFR ( Amer) 110.4 ml/min 01/29/22 07:39 Est GFR (Non-Af Amer) 95.3 ml/min 01/29/22 07:39 BUN/Creatinine Ratio 26.1 (10-20) H 01/29/22 07:39 Glucose 120 mg/dl (70-99(Fasting)) H 01/29/22 07:39 Calcium 8.3 mg/dl (8.5-10.1) L 01/29/22 07:39 SARS-CoV-2, RNA, NAAT NEGATIVE (NEGATIVE) 01/28/22 07:46 Impressions Knee X-Ray 01/28/22 12:51 LEFT KNEE 2 VIEWS History: Left total knee arthroplasty. Degenerative arthritis. Postop. FINDINGS: The patient is status post a left total knee arthroplasty. The hardware is intact. No fracture or dislocation. Surgical drains are in place. IMPRESSION: Left total knee arthroplasty. No evidence for hardware complication. ACT 112: Negative or not required by law. Electronically signed by: Michael Gauthier M.D. 01/28/2022 1:20 PM
[2022-01-29] MEDS: ENOXAPARIN INJ 30 MG/0.3 ML SYR SQ SCH (10:18)
[2022-01-29] MEDS: oxyCODONE HCL IR 5 MG TAB (IMMEDIATE RELEASE) PO PRN ×3 (11:51→21:01)
[2022-01-29] MEDS ORDERED: ARTIFICIAL TEARS OP OINT 3.5 GM TUBE OP PRN (12:51)
--- NOTE | 2022-01-29 14:16 | Communication Note ---
Date of Service: January 29, 2022 Patient seen on floor as she stated she still had lower extremity numbness and weakness. Upon exam, patient had FROM of RLE. She also had good quad strength of LLE. Mainly she had problems with dorsiflexing of her LLE. She described pain in dorsal aspect of her knee but posterior knee and below knee was numb. Spoke to patient at length about spinal, nerve block and joint mix injected by surgeon. Appears the spinal has completely resolved and given that she has quad muscle movement appears adductor canal block has largely resolved. The foot drop most likely is a result of some nerve blockade of her popliteal nerve resulting in below knee weakness. This will most likely resolve by tomorrow. Patient had all questions answered and we will continue to follow peripherally.
[2022-01-29] MEDS: HYDROmorphone INJ 0.5 MG/0.5 ML SYR IV PRN (15:12)
[2022-01-29] MEDS: EZETIMIBE/SIMVASTATIN 10/20 TAB PO SCH (20:49)
[2022-01-29] MEDS: SENNA 8.6 MG TAB PO SCH (20:49)
[2022-01-29] MEDS: lisinopril 10 MG TAB PO SCH (20:49)
[2022-01-29] MEDS: TERAZOSIN HCL 5 MG CAP PO SCH (20:50)
[2022-01-29] MEDS: THIAMINE HCL 100 MG TAB PO SCH (20:50)
[2022-01-29] MEDS: CHOLECALCIFEROL 5,000 UNITS 125 MCG TAB PO SCH (20:51)
[2022-01-29] MEDS: ZOLPIDEM TARTRATE 5 MG TAB PO SCH (20:56)
[2022-01-29] MEDS: TYMLOS SQ SCH (20:58)
--- NOTE | 2022-01-29 21:40 | Hospitalist Progress Note ---
Date of Service January 29, 2022 Assessment & Plan (1) Hypertension: Plan: Francheska is a 61-year-old female with a past medical history of asthma, iatrogenic pneumothorax, anxiety, hypertension, GERD, allergies, and rheumatoid arthritis who presented for scheduled left total knee. We are consulted for postoperative medication management History of knee pain, s/p left total knee arthroplasty Per orthopedics Very mild leukocytosislikely stress response, no signs or symptoms of infection Acute blood loss anemiaanticipated with the procedure, no hemodynamic instability, no indication for transfusion Persistent leg weakness and numbness -I suspect the nerve block is just slower to resolve, but given that it is persistentwe will ask anesthesia to evaluate just to ensure there is nothing I am missing. Otherwise watchful waiting, time Chronic migraine Continue Emgality Rheumatoid arthritis Prior to admission is on hydroxychloroquine/leflunomide/tocilizumab Above meds were held 1 week in advance of surgery, and have been recommended by her jigger artisan to be held until wound is healed. She will continue outpatient follow-up for these. Continue to hold at this time Avoid glucocorticoids postoperatively Continue DMARDs, overall seems to be doing well Osteoporosis -Continue home tymlos, patient has brought her own med Depression/anxiety Continue sertraline Microvascular angina, Continue Ranexa 500 mg p.o. twice daily Statin as noted Continue aspirin daily Follows with [facility], no acute decompensation. Continue outpatient follow-up TTE 2020 with normal wall motion and EF 60%. Cardiac catheterization 08/2019; diagnosed with microvascular angina and no stents placed Continue lipid agents Insomnia Continue home Ambien 6.25 mg CR as needed Hypertension Well-controlled on lisinopril 10 mg daily. May resume tomorrow if creatinine remains stable Hyperlipidemia Continue as ezetimbresimvastatin 10/20 mg daily GERD Continue Protonix, increase to twice daily while on increased DVT prophylaxis then decrease and taper as able given history of osteoporosis (2) Hx of chest pain: (3) Osteoporosis: (4) Rheumatoid arthritis: (5) Sleep apnea: (6) Migraine: Plan Given her overall medical stability, hospitalist team will sign off at this time. Please do not hesitate to call if we can be of further assistance. Admission and Anticipated Discharge Date Admission Date: January 28, 2022 Subjective Feeling good overall. Does have some knee pain, but just getting pain medicines. She notes that overall she is not experience pain that is uncontrolled with medications. Her only real complaint is that her left leg and foot are still fairly numb and weak. Review of Systems Review of Systems: All systems reviewed & are unremarkable except as noted in HPI & below Physical Exam Physical Exam: In general she is awake and alert pleasant no distress. HEENT normocephalic atraumatic mucous membranes moist. Breathing unlabored no accessory muscle use good effort. Skin shows no rashes no pallor or icterus. Left lower extremity shows good capillary refill, surprisingly good light and vibratory sensation, but fairly significant motor weakness, she is able to wiggle her toes and not really lift her leg. Results & Data Results & Data ([facility]) Vital Signs (Past 12 Hours) Vital Signs Temp Pulse Resp BP Pulse Ox O2 Del Method 01/29/22 15:55 97.7 F 64 17 113/68 94 Room Air 01/29/22 11:11 97.7 F 73 17 123/67 98 Room Air PG Care Time/CCT Total # of Minutes Spent Total Time Spent with Patient: Total time spent is greater than 50% in coordination of care (as documented) at patient's floor/unit and/or counseling patient: Coding Level of Care Code 27985 Subseq Hosp Care Lvl 2 Diagnoses Hypertension I10 Hx of chest pain Z87.898 Osteoporosis M81.0 Rheumatoid arthritis M06.9 Sleep apnea G47.30 Migraine G43.909
[2022-01-30] MEDS: ACETAMINOPHEN 500 MG TAB PO SCH ×3 (06:13→20:30)
--- NOTE | 2022-01-30 07:04 | Orthopedic Progress Note ---
Date of Service January 30, 2022 Assessment & Plan (1) Arthritis of knee, left: Plan: Postop day 2 status post left total knee arthroplasty PT/OT protocols. Weightbearing as tolerated. she is able to wiggle toes/ankle plantar/dorsiflexion. sensation has improved DVT prophylaxis-Lovenox daily, SCDs, JOSE hose Pain management as written. DC planning-patient is planning for home health services upon discharge. Admission and Anticipated Discharge Date Admission Date: January 28, 2022 Subjective POD # 2 s/p Left TKA Review of Systems Constitutional: no fever, no chills and no sweats Respiratory: no cough and no dyspnea Cardiovascular: no chest pain and no dyspnea Gastrointestinal: no abdominal pain, no nausea and no vomiting Physical Exam Physical Exam: Vital Signs Temp 36.6 C 01/29/22 21:59 Pulse 61 01/29/22 21:59 Resp 16 01/29/22 21:59 BP 119/70 01/29/22 21:59 Pulse Ox 96 01/29/22 21:59 O2 Del Method 01/29/22 21:59 O2 Flow Rate 6 01/28/22 13:00 Intake & Output 01/29/22 01/30/22 01/30/22 18:59 06:59 18:59 Intake Total 1000 / 1700 700 / 1700 Output Total 176 / 326 150 / 326 Balance 824 / 1374 550 / 1374 Intake: Oral 1000 / 1700 700 / 1700 Output: Drain Output 175 / 325 150 / 325 Left Knee Hemo vac 175 / 325 150 / 325 # Bowel Movement s 1 / Other: # Unmeasured Voi ds 1 1 Musculoskeletal: left lower extremity: NVDI, calf SNT, negative jesus sign. DP palpable, able to wiggle toes/ankle movement without difficulty. SANDRA dressing clean dry and intact. expected post-operative bruising noted. Results & Data ([facility]) Vital Signs (Past 12 Hours) Vital Signs Temp Pulse Resp BP Pulse Ox O2 Del Method 01/29/22 21:59 36.6 C 61 16 119/70 96 Room Air
[2022-01-30] MEDS: oxyCODONE HCL IR 5 MG TAB (IMMEDIATE RELEASE) PO PRN ×3 (07:42→22:20)
[2022-01-30] MEDS: BACLOFEN 10 MG TAB PO SCH ×2 (08:29→20:28)
[2022-01-30] MEDS: MULTIVITAMIN TAB PO SCH (08:29)
[2022-01-30] MEDS: FOLIC ACID 1 MG TAB PO SCH (08:29)
[2022-01-30] MEDS: RANOLAZINE 500 MG ER TAB PO SCH ×2 (08:29→20:27)
[2022-01-30] MEDS: ENOXAPARIN INJ 30 MG/0.3 ML SYR SQ SCH (08:30)
[2022-01-30] MEDS: PANTOprazole 40 MG TAB PO SCH ×2 (08:30→20:27)
[2022-01-30] MEDS: DOCUSATE SODIUM 100 MG CAP PO SCH ×2 (08:30→20:30)
[2022-01-30] MEDS: GABAPENTIN 300 MG CAP PO SCH ×2 (08:30→20:29)
[2022-01-30] MEDS: SERTRALINE HCL 100 MG TABLET PO SCH (08:31)
[2022-01-30] MEDS: TOPIRAMATE 50 MG TAB PO SCH ×2 (08:31→20:29)
[2022-01-30] MEDS: HYDROmorphone INJ 0.5 MG/0.5 ML SYR IV PRN (10:17)
--- NOTE | 2022-01-30 13:09 | XRay Report ---
XR ankle LT min 3V routine CLINICAL HISTORY: Left ankle pain. COMPARISON STUDY: None. FINDINGS: No acute fracture or dislocation within the left ankle. Mild cortical thickening within the distal left fibula favors an old, healed fracture. Mild osteoarthritis at the tibiotalar joint. Ther e is mild soft tissue swelling. No radiopaque foreign bodies. Mild irregularity at the neck of the fi fth metatarsal may also represent an old, healed fracture. IMPRESSION: No acute fracture or dislocation within the left ankle. ACT 112: Negative or not required by law. Electronically signed by: Michael Gauthier M.D. 01/30/2022 1:08 PM
[2022-01-30] MEDS: KETOROLAC 30 MG/ML VIAL IV SCH ×2 (13:32→20:21)
[2022-01-30] MEDS: TYMLOS SQ SCH (20:25)
[2022-01-30] MEDS: THIAMINE HCL 100 MG TAB PO SCH (20:26)
[2022-01-30] MEDS: EZETIMIBE/SIMVASTATIN 10/20 TAB PO SCH (20:27)
[2022-01-30] MEDS: lisinopril 10 MG TAB PO SCH (20:27)
[2022-01-30] MEDS: TERAZOSIN HCL 5 MG CAP PO SCH (20:28)
[2022-01-30] MEDS: CHOLECALCIFEROL 5,000 UNITS 125 MCG TAB PO SCH (20:28)
[2022-01-30] MEDS: SENNA 8.6 MG TAB PO SCH (20:29)
[2022-01-30] MEDS: ZOLPIDEM TARTRATE 5 MG TAB PO SCH (20:31)
[2022-01-31] MEDS: KETOROLAC 30 MG/ML VIAL IV SCH ×2 (01:47→07:32)
[2022-01-31] MEDS: ACETAMINOPHEN 500 MG TAB PO SCH (06:12)
--- NOTE | 2022-01-31 06:19 | Orthopedic Progress Note ---
Date of Service January 31, 2022 Assessment & Plan (1) Arthritis of knee, left: Plan: Postop day 3 status post left total knee arthroplasty PT/OT protocols. Weightbearing as tolerated. she is able to wiggle toes/ankle plantar/dorsiflexion. sensation has improved DVT prophylaxis-Lovenox daily, SCDs, JOSE hose Pain management as written. DC planning-patient was for discharge yesterday however yesterday evening after getting up for physical therapy was having pain in her ankle. X-rays did not show any acute bony pathology. She was ordered Toradol over last night and her pain seems to improve. We will progress her physical therapy today and plan for discharge home later today with home health physical therapy Admission and Anticipated Discharge Date Admission Date: January 28, 2022 Supervising Physician Co-Signing Physician Notes Patient seen and examined. Agree with JORGE Hickman's note as above. She is day 3 from her total knee and doing well. She is mobilizing well in the hallways. Pain is controlled. Good range of motion in the knee. Plan for discharge home today. Subjective POD # 3 s/p Left TKA Review of Systems Constitutional: no fever and no chills Respiratory: no cough and no dyspnea Cardiovascular: no chest pain, no dyspnea and no orthopnea Gastrointestinal: no abdominal pain, no nausea and no vomiting Physical Exam Physical Exam: Vital Signs Temp 36.7 C 01/30/22 22:05 Pulse 105 H 01/30/22 22:05 Resp 16 01/30/22 22:05 BP 133/77 01/30/22 22:05 Pulse Ox 95 01/30/22 22:05 O2 Del Method 01/30/22 22:05 O2 Flow Rate 6 01/28/22 13:00 Intake & Output 01/30/22 01/30/22 01/31/22 06:59 18:59 06:59 Intake Total 700 / 1700 422 / 1022 600 / 1022 Output Total 150 / 326 Balance 550 / 1374 422 / 1022 600 / 1022 Weight 77.8 kg Intake: Oral 700 / 1700 422 / 1022 600 / 1022 Output: Drain Output 150 / 325 Left Knee Hemo vac 150 / 325 Other: # Unmeasured Voi ds 1 Constitutional: WD/WN, vitals as above Musculoskeletal: Ankle: no deformity, no effusion, no skin erythema and no ecchymosis Left knee: NVDI, calf SNT, negative jesus sign. DP palpable, able to wiggle toes/ankle movement without difficulty. SANDRA dressing clean dry and intact. expected post-operative bruising noted. Results & Data ([facility]) Vital Signs (Past 12 Hours) Vital Signs Temp Pulse Resp BP Pulse Ox O2 Del Method 01/30/22 22:05 36.7 C 105 H 16 133/77 95 Room Air
[2022-01-31] MEDS: DOCUSATE SODIUM 100 MG CAP PO SCH (08:17)
[2022-01-31] MEDS: ENOXAPARIN INJ 30 MG/0.3 ML SYR SQ SCH (09:18)
[2022-01-31] MEDS: GABAPENTIN 300 MG CAP PO SCH (09:18)
[2022-01-31] MEDS: MULTIVITAMIN TAB PO SCH (09:18)
[2022-01-31] MEDS: FOLIC ACID 1 MG TAB PO SCH (09:19)
[2022-01-31] MEDS: SERTRALINE HCL 100 MG TABLET PO SCH (09:19)
[2022-01-31] MEDS: PANTOprazole 40 MG TAB PO SCH (09:19)
[2022-01-31] MEDS: TOPIRAMATE 50 MG TAB PO SCH (09:19)
[2022-01-31] MEDS: BACLOFEN 10 MG TAB PO SCH (09:19)
[2022-01-31] MEDS: RANOLAZINE 500 MG ER TAB PO SCH (09:19)
[2022-01-31] MEDS: oxyCODONE HCL IR 5 MG TAB (IMMEDIATE RELEASE) PO PRN (12:42)
--- NOTE | 2022-02-05 12:36 | Discharge Summary ---
Date of Service February 05, 2022 Admission HPI Per Admitting Provider Francheska is a pleasant 61-year-old female who presents for preop evaluation prior to left total knee replacement. Francheska has been having pain in this knee for many years now which is gradually worsened. Her most recent MRI shows grade 3 and 4 changes tricompartmentally as well as moderate joint effusion and stress reaction of her medial tibial plateau. She has tried previous cortisone injections as well as viscosupplementation, she had knee arthroscopy performed as well without any relief. At this point time she has failed conservative measures and after discussing further care would like to proceed with a left total knee replacement Admission Exam Per Admitting Provider Physical Exam: HT: 5ft 6in WT: 78.4kg Constitutional: WD/WN, vitals as above no acute distress Respiratory: normal respiratory effort, lungs clear to auscultation no respiratory distress, no labored breathing and does not use accessory muscles Cardiovascular: RRR, no murmur, no edema Gastrointestinal (Abdomen): normal bowel sounds, soft, nontender, no hepatosplenomegaly Musculoskeletal: Knee: + knee abnormal to inspection (LEFT KNEE), + effusion (+1 effusion), + surgical incision (well healed portals), + limited ROM of knee (ROM 0/3/110), + knee ROM with crepitation, + joint line tenderness (medial joint line) and + José Miguel's sign positive; no deformity, no skin erythema, no ecchymosis, no valgus laxity, no varus laxity, anterior drawer test negative, Asher's sign negative and pivot shift test negative Principal Diagnosis Left knee osteoarthritis Discharge Data Allergies Allergy/AdvReac Type Severity Reaction Status Date / Time cefuroxime [From Ceftin] Allergy Intermediate vomiting, Verified 01/28/22 07:56 diarrhea levofloxacin [From Levaquin] Allergy Intermediate vomiting, Verified 01/28/22 07:56 diarrhea Consultations 01/28/22 13:36 Consult Hospitalist Routine Procedures Performed Operation Date: 01/28/22 10:00 Actual Procedures p Left Total Knee Arthroplasty, Cemented(Left) - Abundio Recinos DO Ordered Studies 01/28/22 05:00 US - OR guided needle placemen Routine Hospital Course (1) Arthritis of knee, left: Patient was admitted on the above-noted date and had the above noted surgery performed which she tolerated well. On her first postoperative day, she was sitting at the bedside eating her breakfast. She was having residual numbness in her leg and having difficulty moving the leg. She had weak dorsiflexion of the left foot. Pain was controlled. She had no other complaints. Dressings were clean and dry. Calves soft nontender. She did have some residual decree sensation lower extremity to the dorsum of the foot. She had good plantar flexion and had weak dorsiflexion of the foot she had 250 mL from her Hemovac. Vital signs were stable she was afebrile, and hemoglobin was 10.7. She was started on her PT and OT protocols. DVT prophylaxis and pain management. Residual numbness was felt to be secondary to intraoperative injection and plans were to watch at this time. By her second postoperative day, she was feeling well. Neurovascular is intact. Calves are soft nontender. She was dorsiflexing her ankle without difficulty. Sandra dressing was clean, dry, and intact. She was continued on her protocols and plan for discharge. I was called to see the patient later that afternoon. Near the end of her physical therapy session, the patient had severe pain in her knee and in her right ankle. She became somewhat pale and diaphoretic. SBP did not drop below 100. When I was able to see her, the patient was feeling a little bit better after being medicated. She was eating her lunch. Operative site continue to look good with mild swelling consistent with surgery. Mild swelling going down the lower extremity to the left ankle. Pain noted over the medial and lateral malleolar line. She was able to take the ankle through range of motion actively with mild discomfort. She was given a dose of Toradol 30 mg IV every 6 hours x24 hours. When I returned to see her a second time she was feeling better overall. He continued to have some of her ankle discomfort but it had improved. An Artie wrap was placed per her request and she was continued on her protocols and discharge was held. By her third day postoperatively she was doing very well pain was c ontrolled. She had good range of motion of her knee. She was progressing with her physical therapy and was felt she be discharged home. Total Time Total Time Spent Total Time Spent (In Minutes): 10 Discharge Plan Discharge Items Patient Disposition: Home - Home Health Services Reason For Visit: Osteoarthritis Left Knee Discharge Diagnosis: Osteoarthritis Left Knee Activity: Per Instructions section Weightbearing: Left weightbearing Weightbearing Comment: as tolerated with walker Non-emergency contact: Surgeon Call non-emergency contact if: you have any medication questions, your pain is not controlled, your temperature is above 101.5, your wound has increased redness and your wound has increased drainage Follow-up/Referrals: Abundio Recinos, [Surgeon] - (Follow up with Dr Recinos in 2 weeks from the day of your surgery for your first post operative visit) Allyn Blood M.D. [Primary Care Provider] - 02/03/22 2:20 pm Diet: Regular Addtl Attending Provider Instructions: PLEASE HOLD YOUR PLAQUENIL, ARAVA, AND ACTEMRA FOR 2 WEEKS IF POSSIBLE. PLEASE CALL THE OFFICE TO DISCUSS STARTING THEM SOONER IF NEEDED. PLEASE INCREASE YOUR PROTONIX TO TWO TABS DAILY FOR ONE MONTH. ACTIVITY RECOMMENDATIONS: SELF CARE INSTRUCTIONS AFTER TOTAL KNEE REPLACEMENT A. You may need to continue a physical therapy program after discharge from the hospital. There are several options available to you. Your doctor will assist you in selecting the best one for you. 1. An out-patient facility 2 to 3 times a week for therapy or home therapy. 2. Continue working on all exercises taught to you in the hospital. Your goals should be to increase bending of your knee to 90 degrees and beyond and to fully straighten your knee. B. You may progress at your own pace from walking with a walker or crutches to a cane; then to no assistive devices. C. Make walking a part of your daily routine. Be up as much as comfortable with rest periods throughout the day. Rest with leg elevation is very important. Use the ice wrap frequently for the first 3-4 weeks. D. There are no restrictions on activities. You may ride in a car, shop, participate in search consultant and all social activities. E. Wear the long elastic stockings (JOSE hose) 20 hours a day for 2 weeks after surgery. They can be removed several times a day for laundering and for a bath. F. You may shower, no tub baths until cleared by your doctor. SPECIAL CARE INSTRUCTIONS: VERY IMPORTANT TO READ AND REVIEW A. There are a few signs you need to watch for after you are home. Call [facility] if you notice any of the followin. Increased severe knee pain. Some pain is expected especially when you exercise. 2. Increased swelling in your leg or knee; pain or swelling of the calf muscle in either lower leg. 3. Any fluid drainage from the incision. 4. Shortness of breath or chest pain. B. Please call [facility] at if you have any concerns or questions about your operation or recovery. The doctor or his nurse will return your call promptly. C. You must take antibiotics before dental work, bladder, bowel or other surgery. Your doctor will provide you with a permanent care to carry describing this precaution. IMPORTANT: * REMEMBER TO TAKE ASPIRIN, 81 MG, TWICE DAILY FOR 4 WEEKS UNLESS OTHERWISE DIRECTED. THIS IS YOUR BLOOD THINNER. * HIGH RISK PATIENTS MAY BE PRESCRIBED A STRONGER BLOOD THINNER. THIS WILL BE PROVIDED AT DISCHARGE. * CALL IF INCREASED PAIN, REDNESS, DRAINAGE OR FEVER GREATER THAT 101. * WEAR JOSE HOSE 20 HOURS PER DAY FOR 2 WEEKS. * SANDRA Dressing - This is a large suction dressing covering your incision. This will help pull any excess drainage from the wound and allow your incision to heal properly. You may shower with this if you can keep the unit outside of the shower. If any bleeding or leakage is noted please call your doctor's office. This will remain on your incision for 7 days and then should be removed. This can be done yourself or by the home nursing staff if applicable. The entire unit is disposable once removed. Once removed, keep incision clean and dry. If redness or drainage is noted, please call your surgeon. . After your Sandra dressing is removed, follow the wound care instructions below. * DERMABOND Prineo- This is a mesh tape dressing that is covered with glue. It should remain in place until the incision is properly healed, usually 10-14 days. This dressing is designed to naturally slough off. You may trim the excess mesh tape as it peels off. Incision may be briefly wet in a shower. Dry immediately by blotting with a clean, dry towel. Do not bath or swim until instructed by your doctor. Do not scratch, rub, or pick at the dressing. Do not apply any topical ointments or lotions until dressing is completely removed and/or instructed by your doctor. There may be a small piece of suture material at one end of your incision. Do not pull or trim this. If it is bothersome or catching on clothing, you may cover it with a band-aid. FOLLOW UP VISIT: If appointment is not already scheduled: Please call [facility] to make a follow-up appointment for 2 weeks after your surgery at . Pending Studies at Discharge: No Stand-Alone Forms: My [facility], Opioid Pain Management, Work/School Release Medications and DC Order Prescriptions: New acetaminophen [Tylenol Extra Strength] 500 mg Tablet 1,000 mg PO Q8 14 Days Qty: 84 0RF polyethylene glycol 3350 [Miralax] 17 gram powder in packet 17 g PO DAILY PRN (Reason: constipation) Qty: 5 0RF doxycycline hyclate 100 mg capsule 100 mg PO BID 14 Days Qty: 28 1RF polyethylene glycol 3350 [Miralax] 17 gram powder in packet 17 g PO DAILY PRN (Reason: constipation) Qty: 5 0RF oxycodone 5 mg tablet 5 mg PO Q4H MDD 6 PRN (Reason: pain) Qty: 30 0RF enoxaparin [Lovenox] 30 mg/0.3 mL Syringe 30 mg subcut QAM 30 Days Qty: 9 0RF Continued terazosin 5 mg Capsule 5 mg PO HS azelastine 0.05 % Drops 1 drp OPHTHALMIC (EYE) BID PRN (Reason: allergies) sertraline 100 mg Tablet 100 mg PO QAM thiamine HCl (vitamin B1) [Vitamin B-1] 250 mg Tablet 250 mg PO QPM baclofen 10 mg Tablet 10 mg PO BID pantoprazole [Protonix] 40 mg Tablet,Delayed Release (Dr/Ec) 40 mg PO QAM lisinopril [Zestril] 10 mg Tablet 10 mg PO QPM folic acid 1 mg Tablet 1 mg PO QAM topiramate [Topamax] 50 mg Tablet 50 mg PO BID ezetimibe-simvastatin [Vytorin 10-20] 10-20 mg Tablet 1 tab PO HS zolpidem [Ambien CR] 6.25 mg Tablet,Ext Release Multiphase 6.25 mg PO HS ranolazine [Ranexa] 500 mg Tablet Extended Release 12 Hr 500 mg PO BID zoledronic [id number] [Reclast] 5 mg/100 mL Piggyback 1 ea IV Q365D Rx Instructions: 07/16/21-first dose cholecalciferol (vitamin D3) [Vitamin D3] 125 mcg (5,000 unit) Tablet 125 mcg PO HS Emgality Pen 120 mg/mL Pen Injector 120 mg SUBCUT Q30D levocetirizine 5 mg PO QPM Tymlos 80 mcg SC QPM gabapentin 300 mg PO BID Rx Instructions: 1 capsule am, 2 HS Discontinued aspirin [Aspir-81] 81 mg Tablet,Delayed Release (Dr/Ec) 81 mg PO HS leflunomide [Arava] 20 mg Tablet 20 mg PO QAM hydroxychloroquine [Plaquenil] 200 mg Tablet 200 mg PO BID Actemra ACTPen 162 mg/0.9 mL Pen Injector 162 mg SUBCUT Q7D Rx Instructions: Wednesdays Discharge Orders: Discharge Order (Routine); Ordered 01/31/22 Ordered By: Nelson Lopez/Other Patient Handouts: DVT Post Op Prevention, Tips After Knee Surgery, Knee Replacement Total Dc Admission Data Admit Date/Time: 01/28/22 12:51 Attending Provider: Abundio Recinos Admit Provider: Abundio Recinos Primary Care Provider: Allyn Blood Other Providers: Abundio Velazquez ; Elvis Chand Other Interventions: Discharge Summary Assessment (RN) Last Done: 01/31/22 12:46
== END 2022-01-31 13:37 | disposition home health service (06) ==
LOC: 3W 07:23 → ASU 07:23